=== PATIENT | male | born 2005 | race Caucasian/White ===

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

== ENCOUNTER 2024-02-29 14:38 | Emergency (ER) | payer OTHER ==
[~2024-02-29] VITALS: Ht 172.7 cm; Wt 81.6 kg
[2024-02-29] MEDS ORDERED: VIBRAMYCIN100 MG PO (15:41)
[2024-02-29] MEDS ORDERED: Doxycycline Hyclate 100 MG CAP PO ONE (15:45)
== END 2024-02-29 16:10 | disposition home or self-care (01) ==
LOC: ED 14:38
DX: L02.01 Cutaneous abscess of face (principal); F90.9 Attention-deficit hyperactivity disorder, unspecified type

== ENCOUNTER 2025-01-09 15:36 | Emergency (ER) | payer SELFPAY ==
[~2025-01-09] VITALS: Wt 83.9 kg
[~2025-01-09 15:36] MED LIST changes: +ATARAX,VISTARIL50 MG PO; +NATURE'S BLEND100 M2 PO; +SEPTDS PO; +VITAMIN D350 MCG PO
[2025-01-09] MEDS ORDERED: Motrin,Rufen800 MG PO (16:49)
== END 2025-01-09 17:00 | disposition home or self-care (01) ==
LOC: ED 15:36
DX: S86.911A Strain of unspecified muscle(s) and tendon(s) at lower leg level, right leg, initial encounter (principal); F17.290 Nicotine dependence, other tobacco product, uncomplicated; Z79.899 Other long term (current) drug therapy; X58.XXXA Exposure to other specified factors, initial encounter; Y93.89 Activity, other specified; Y92.89 Other specified places as the place of occurrence of the external cause; Y99.8 Other external cause status